=== PATIENT | male | born 1965 | race Caucasian/White ===

== ENCOUNTER 2024-06-05 20:21 | Inpatient (IN) | payer MEDICAID ==
[~2024-06-05] VITALS: Ht 177.8 cm; Wt 115.3 kg
[2024-06-05 20:56] LABS: BASOPHILS % (AUTO) 0.6 % (0-1); EOSINOPHILS # (AUTO) 0.1 X10'3 (0-0.9); EOSINOPHILS % (AUTO) 1.1 % (0-6); HEMATOCRIT 44.5 % (42.0-52.0); HEMOGLOBIN 15.2 g/dl (14.0-17.9); LYMPHOCYTES % (AUTO) 51.1 % (21-51); MEAN CORPUSCULAR HEMOGLOBIN 32.8 PG (27.0-31.0); MEAN CORPUSCULAR HGB CONC 34.2 g/dL (33.0-36.5); MEAN CORPUSCULAR VOLUME 96.1 FL (78-98); MEAN PLATELET VOLUME 7.4 FL (7.4-10.4); MONOCYTES # (AUTO) 0.3 X10'3 (0-0.9); MONOCYTES % (AUTO) 5.3 % (2-12); NEUTROPHILS # (AUTO) 2.5 X10'3 (1.8-7.7); NEUTROPHILS % (AUTO) 41.9 % (42-75); PLATELET COUNT 258 X10'3 (140-440); RED BLOOD COUNT 4.62 X10'6 (4.70-6.10); RED CELL DISTRIBUTION WIDTH 14.4 % (11.5-14.5); WHITE BLOOD COUNT 5.9 X10'3 (4.5-11.0)
[2024-06-05 21:11] LABS: PROTHROMBIN TIME 10.8 SECONDS (9.0-12.0)
[2024-06-05 21:13] LABS: ALANINE AMINOTRANSFERASE 31 U/L (12-78); ALBUMIN 3.3 G/DL (3.4-5.0); ALBUMIN/GLOBULIN RATIO 0.9 (1.1-1.5); ALKALINE PHOSPHATASE 138 IU/L (46-116); ANION GAP 4 (8-16); ASPARTATE AMINO TRANSFERASE 27 U/L (10-37); BILIRUBIN,TOTAL 0.5 MG/DL (0.1-1.0); BLOOD UREA NITROGEN 13 MG/DL (7-18); CALCIUM 8.2 MG/DL (8.5-10.1); CHLORIDE 103 MMOL/L (99-107); CREATININE 1.08 MG/DL (0.60-1.10); GLUCOSE 275 MG/DL (70-104); POTASSIUM 4.3 MMOL/L (3.5-5.1); SODIUM 137 MMOL/L (135-145); TOTAL CARBON DIOXIDE 30.5 MMOL/L (24-32); eCRCL 75 ML/MIN; eGFR 70 ML/MIN
[2024-06-05 21:19] LABS: TOTAL CELLS COUNTED 100
[2024-06-05 21:20] LABS: PLATELET ESTIMATE NORMAL; PRO BRAIN NATRIURETIC PEPTIDE 183 PG/ML (0-125)
[2024-06-05] MEDS ORDERED: magnesium sulf-water 2g/50mL 50 ML IV PRN (21:50)
[2024-06-05] MEDS ORDERED: magnesium sulf-water 4G/100mL 100 ML IV PRN (21:50)
[2024-06-05] MEDS ORDERED: acetaminophen 325mg tablet PO PRN (21:50)
[2024-06-05] MEDS ORDERED: magnesium hydroxide 30ml (MOM) UD suspension PO PRN (21:50)
[2024-06-05] MEDS ORDERED: ondansetron/PF 4mg/2ml inj IV PRN (21:50)
[2024-06-05] MEDS ORDERED: potassium Cl 40MEQ/1/2NS 520ml 520 ML IV PRN (21:50)
[2024-06-05] MEDS ORDERED: potassium Cl 20 mEq SR tablet PO PRN ×2 (21:50)
[2024-06-05 22:08] LABS: MAGNESIUM 2.4 MG/DL (1.5-2.4)
[2024-06-05] MEDS: heparin 10,000 units/1 ML INJ IV ONE (22:08)
[2024-06-05] MEDS: heparin 25,000 UNIT/250ml bag 250 ML IV PRN (22:09)
[2024-06-05] MEDS: MESSAGE TO NURSING IV ONE (22:10)
[2024-06-05] MEDS: HEPARIN DRIP-CARDIAC**PHARMACIST-TO-DOSE IV STA (22:10)
[2024-06-05 22:33] LABS: HEMOGLOBIN A1C > 12.0 % (4.5-6.2)
[2024-06-05] MEDS ORDERED: glucagon, human recombinant 1mg kit SUBCUT PRN (22:35)
[2024-06-05] MEDS ORDERED: nitroGLYCERIN 0.4mg SUBLingual tab SL PRN (22:35)
[2024-06-05] MEDS ORDERED: dextrose 50%-water 50ml dispensing syringe IV PRN ×2 (22:35)
[2024-06-05] MEDS ORDERED: DEXTROSE 15 GM of carb/4 tabs (each vial/BOTTLE has 4 tablets) PO PRN ×2 (22:35)
[2024-06-05] MEDS: atorvastatin 20mg tablet PO SCH (22:54)
[2024-06-05] MEDS: metoprolol tartrate 50mg tablet PO SCH (22:54)
[2024-06-05 23:07] LABS: CHOL/HDL RATIO 4.8 (0.00-4.99); CHOLESTEROL 187 MG/DL (0-200); HDL CHOLESTEROL 39 MG/DL (35-60); TRIGLYCERIDES 292 MG/DL (20-135)
[2024-06-05 23:24] LABS: LDL CHOLESTEROL 105 MG/DL (50-100)
[2024-06-05] MEDS ORDERED: VANCOMYCIN 1,500MG in normal saline IV soln 300 ML IV SCH (23:38)
[2024-06-05] MEDS: clopidogrel 75mg tablet PO ONE (23:45)
[2024-06-06] VITALS (9 sets, daily range): BP systolic 102–130; BP diastolic 61–82; PULSE 64–90; RESP 16–20; TEMP 97.6–98.5; O2SAT 95–98
[2024-06-06] MEDS ORDERED: piperacillin/tazo 3.375gm/50ml 50 ML IV SCH
[2024-06-06] MEDS: VANCOMYCIN 1,500MG in normal saline IV soln 300 ML IV ONE (02:39)
[2024-06-06 03:35] LABS: BASOPHILS % (AUTO) 0.3 % (0-1); EOSINOPHILS # (AUTO) 0.1 X10'3 (0-0.9); EOSINOPHILS % (AUTO) 1.1 % (0-6); HEMATOCRIT 43.2 % (42.0-52.0); HEMOGLOBIN 14.8 g/dl (14.0-17.9); LYMPHOCYTES # (AUTO) 3.1 X10'3 (1.1-4.8); LYMPHOCYTES % (AUTO) 46.3 % (21-51); MEAN CORPUSCULAR HGB CONC 34.2 g/dL (33.0-36.5); MEAN CORPUSCULAR VOLUME 96.5 FL (78-98); MEAN PLATELET VOLUME 7.6 FL (7.4-10.4); MONOCYTES # (AUTO) 0.4 X10'3 (0-0.9); MONOCYTES % (AUTO) 5.9 % (2-12); NEUTROPHILS # (AUTO) 3.1 X10'3 (1.8-7.7); NEUTROPHILS % (AUTO) 46.4 % (42-75); PLATELET COUNT 251 X10'3 (140-440); RED BLOOD COUNT 4.48 X10'6 (4.70-6.10); RED CELL DISTRIBUTION WIDTH 14.4 % (11.5-14.5); WHITE BLOOD COUNT 6.6 X10'3 (4.5-11.0)
[2024-06-06 03:59] LABS: ALANINE AMINOTRANSFERASE 27 U/L (12-78); ALBUMIN/GLOBULIN RATIO 0.8 (1.1-1.5); ALKALINE PHOSPHATASE 127 IU/L (46-116); ANION GAP 5 (8-16); ASPARTATE AMINO TRANSFERASE 26 U/L (10-37); BILIRUBIN,TOTAL 0.5 MG/DL (0.1-1.0); BLOOD UREA NITROGEN 15 MG/DL (7-18); BUN/CREATININE RATIO 14.9 (10.0-20.0); CHLORIDE 103 MMOL/L (99-107); CHOL/HDL RATIO 4.7 (0.00-4.99); CHOLESTEROL 170 MG/DL (0-200); CREATININE 1.01 MG/DL (0.60-1.10); GLUCOSE 293 MG/DL (70-104); HDL CHOLESTEROL 36 MG/DL (35-60); LDL CHOLESTEROL 99 MG/DL (50-100); MAGNESIUM 2.2 MG/DL (1.5-2.4); POTASSIUM 4.2 MMOL/L (3.5-5.1); SODIUM 135 MMOL/L (135-145); TOTAL CARBON DIOXIDE 27.1 MMOL/L (24-32); TOTAL PROTEIN 6.6 G/DL (6.4-8.2); TRIGLYCERIDES 269 MG/DL (20-135); eCRCL 80 ML/MIN; eGFR 75 ML/MIN
[2024-06-06] MEDS: MESSAGE TO NURSING IV ONE ×3 (04:18→17:45)
[2024-06-06] MEDS: K and/or MAG REPLACEMENT MC SCH (08:00)
[2024-06-06] MEDS: INSULIN LISPRO 100 UNIT/ML INSULN.PEN MULTI-DOSE SQ SCH (08:18)
[2024-06-06] MEDS: docusate sod 100mg capsule PO SCH (08:19)
[2024-06-06] MEDS: aspirin 81mg, enteric-coated 1 TAB TABLET.DR PO SCH (08:19)
[2024-06-06] MEDS: heparin 10,000 units/1 ML INJ IV PRN (10:54)
[2024-06-06] MEDS ORDERED: vancomycin/NS 1 GM ADD-VANTAGE 250 ML IV SCH (12:00)
[2024-06-06] MEDS: insulin glargine (Lantus) pen - multi-dose SQ SCH (21:18)
[2024-06-07] VITALS (7 sets, daily range): BP systolic 114–126; BP diastolic 61–78; PULSE 68–80; RESP 14–20; TEMP 97.6–99.2; O2SAT 94–98
[2024-06-07] MEDS: MESSAGE TO NURSING IV ONE ×4 (00:19→19:51)
[2024-06-07 05:47] LABS: BASOPHILS % (AUTO) 0.5 % (0-1); EOSINOPHILS # (AUTO) 0.1 X10'3 (0-0.9); HEMATOCRIT 44.2 % (42.0-52.0); HEMOGLOBIN 15.3 g/dl (14.0-17.9); LYMPHOCYTES # (AUTO) 2.5 X10'3 (1.1-4.8); MEAN CORPUSCULAR HEMOGLOBIN 33.2 PG (27.0-31.0); MEAN CORPUSCULAR HGB CONC 34.5 g/dL (33.0-36.5); MEAN PLATELET VOLUME 7.6 FL (7.4-10.4); MONOCYTES # (AUTO) 0.3 X10'3 (0-0.9); MONOCYTES % (AUTO) 5.5 % (2-12); NEUTROPHILS # (AUTO) 2.7 X10'3 (1.8-7.7); PLATELET COUNT 214 X10'3 (140-440); RED CELL DISTRIBUTION WIDTH 14.2 % (11.5-14.5); WHITE BLOOD COUNT 5.5 X10'3 (4.5-11.0)
[2024-06-07 06:01] LABS: ALANINE AMINOTRANSFERASE 25 U/L (12-78); ALBUMIN 2.9 G/DL (3.4-5.0); ALBUMIN/GLOBULIN RATIO 0.8 (1.1-1.5); ALKALINE PHOSPHATASE 130 IU/L (46-116); ANION GAP 4 (8-16); ASPARTATE AMINO TRANSFERASE 11 U/L (10-37); BILIRUBIN,TOTAL 0.5 MG/DL (0.1-1.0); BLOOD UREA NITROGEN 15 MG/DL (7-18); CALCIUM 7.9 MG/DL (8.5-10.1); CHLORIDE 103 MMOL/L (99-107); CREATININE 0.88 MG/DL (0.60-1.10); GLUCOSE 221 MG/DL (70-104); MAGNESIUM 2.1 MG/DL (1.5-2.4); POTASSIUM 3.9 MMOL/L (3.5-5.1); SODIUM 135 MMOL/L (135-145); TOTAL PROTEIN 6.5 G/DL (6.4-8.2); eCRCL 92 ML/MIN; eGFR 88 ML/MIN
[2024-06-08] VITALS (17 sets, daily range): BP systolic 95–134; BP diastolic 55–74; PULSE 54–92; RESP 14–18; TEMP 96.8–98.3; O2SAT 92–100
[2024-06-08 01:11] LABS: BASOPHILS % (AUTO) 0.7 % (0-1); EOSINOPHILS # (AUTO) 0.1 X10'3 (0-0.9); EOSINOPHILS % (AUTO) 1.2 % (0-6); HEMATOCRIT 44.9 % (42.0-52.0); HEMOGLOBIN 15.6 g/dl (14.0-17.9); LYMPHOCYTES % (AUTO) 45.2 % (21-51); MEAN CORPUSCULAR HGB CONC 34.7 g/dL (33.0-36.5); MEAN CORPUSCULAR VOLUME 95.1 FL (78-98); MEAN PLATELET VOLUME 7.6 FL (7.4-10.4); MONOCYTES # (AUTO) 0.3 X10'3 (0-0.9); MONOCYTES % (AUTO) 4.7 % (2-12); NEUTROPHILS # (AUTO) 3.2 X10'3 (1.8-7.7); NEUTROPHILS % (AUTO) 48.2 % (42-75); PLATELET COUNT 204 X10'3 (140-440); RED BLOOD COUNT 4.72 X10'6 (4.70-6.10); RED CELL DISTRIBUTION WIDTH 14.4 % (11.5-14.5); WHITE BLOOD COUNT 6.6 X10'3 (4.5-11.0)
[2024-06-08 01:22] LABS: ALANINE AMINOTRANSFERASE 28 U/L (12-78); ALBUMIN 2.9 G/DL (3.4-5.0); ALBUMIN/GLOBULIN RATIO 0.8 (1.1-1.5); ALKALINE PHOSPHATASE 129 IU/L (46-116); ANION GAP 9 (8-16); ASPARTATE AMINO TRANSFERASE 13 U/L (10-37); BILIRUBIN,TOTAL 0.5 MG/DL (0.1-1.0); BLOOD UREA NITROGEN 15 MG/DL (7-18); CALCIUM 8.3 MG/DL (8.5-10.1); CHLORIDE 102 MMOL/L (99-107); CREATININE 0.79 MG/DL (0.60-1.10); GLUCOSE 188 MG/DL (70-104); POTASSIUM 3.8 MMOL/L (3.5-5.1); SODIUM 137 MMOL/L (135-145); TOTAL CARBON DIOXIDE 26.3 MMOL/L (24-32); TOTAL PROTEIN 6.5 G/DL (6.4-8.2); eCRCL 103 ML/MIN; eGFR > 90 ML/MIN
[2024-06-08] MEDS: MESSAGE TO NURSING IV ONE (01:58)
[2024-06-08] MEDS ORDERED: heparin 25,000 UNIT/250ml bag 250 ML IV PRN (09:08)
[2024-06-08] MEDS ORDERED: verapamil 2.5 mg/ml inj IV ONE (13:52)
[2024-06-08] MEDS ORDERED: iohexol 350MG/ML 100ml bottle IV ONE (13:52)
[2024-06-08] MEDS ORDERED: heparin 1,000unit/ml 10ml vial 0 ML ONE (13:52)
[2024-06-08] MEDS ORDERED: midazolam 1 mg/ML 2ml injection ONE (13:52)
[2024-06-08] MEDS ORDERED: fentaNYL/PF 50MCG/1 ML 2ML syringe ONE (13:52)
[2024-06-08] MEDS ORDERED: LIDOcaine 1% (10mg/ml) 2ml vial ONE (13:52)
[2024-06-08] MEDS ORDERED: LIDOcaine 1% 30ml preserv. free vial ONE (14:14)
[2024-06-08] MEDS ORDERED: iohexol 350 MG/ML 50ML vial IV ONE (14:44)
[2024-06-08] MEDS: JUVEN Smoothie Arginine/Glut./Ca2+Bmb (Juven 19.3pkt) 240ml cup PO SCH (17:30)
[2024-06-08] MEDS ORDERED: clopidogrel 75mg tablet PO SCH ×2 (20:00→21:04)
[2024-06-08] MEDS: clopidogrel 75mg tablet PO ONE (21:26)
[2024-06-09 02:00] VITALS: BP 142/84; PULSE 73; RESP 18; TEMP 97.5; O2SAT 97
[2024-06-09 06:00] VITALS: BP 154/96; PULSE 84; RESP 12; TEMP 98.1; O2SAT 100
[2024-06-09 07:21] LABS: BASOPHILS % (AUTO) 0.4 % (0-1); EOSINOPHILS # (AUTO) 0.1 X10'3 (0-0.9); HEMATOCRIT 47.4 % (42.0-52.0); HEMOGLOBIN 16.4 g/dl (14.0-17.9); LYMPHOCYTES # (AUTO) 2.2 X10'3 (1.1-4.8); LYMPHOCYTES % (AUTO) 31.8 % (21-51); MEAN CORPUSCULAR HEMOGLOBIN 33.2 PG (27.0-31.0); MEAN CORPUSCULAR HGB CONC 34.7 g/dL (33.0-36.5); MEAN CORPUSCULAR VOLUME 95.7 FL (78-98); MEAN PLATELET VOLUME 7.7 FL (7.4-10.4); MONOCYTES # (AUTO) 0.4 X10'3 (0-0.9); MONOCYTES % (AUTO) 5.4 % (2-12); NEUTROPHILS # (AUTO) 4.2 X10'3 (1.8-7.7); NEUTROPHILS % (AUTO) 61.4 % (42-75); PLATELET COUNT 198 X10'3 (140-440); RED BLOOD COUNT 4.96 X10'6 (4.70-6.10); RED CELL DISTRIBUTION WIDTH 14.3 % (11.5-14.5); WHITE BLOOD COUNT 6.9 X10'3 (4.5-11.0)
[2024-06-09 07:25] LABS: ALANINE AMINOTRANSFERASE 51 U/L (12-78); ALBUMIN/GLOBULIN RATIO 0.8 (1.1-1.5); ALKALINE PHOSPHATASE 136 IU/L (46-116); ANION GAP 8 (8-16); ASPARTATE AMINO TRANSFERASE 33 U/L (10-37); BILIRUBIN,TOTAL 0.7 MG/DL (0.1-1.0); BLOOD UREA NITROGEN 15 MG/DL (7-18); BUN/CREATININE RATIO 19.5 (10.0-20.0); CALCIUM 8.7 MG/DL (8.5-10.1); CHLORIDE 102 MMOL/L (99-107); CREATININE 0.77 MG/DL (0.60-1.10); GLUCOSE 177 MG/DL (70-104); MAGNESIUM 2.1 MG/DL (1.5-2.4); POTASSIUM 4.2 MMOL/L (3.5-5.1); SODIUM 136 MMOL/L (135-145); TOTAL CARBON DIOXIDE 25.9 MMOL/L (24-32); TOTAL PROTEIN 6.8 G/DL (6.4-8.2); eCRCL 105 ML/MIN; eGFR > 90 ML/MIN
[2024-06-09 08:04] VITALS: BP_SYST 154; PULSE 84
[2024-06-09] MEDS ORDERED: CLOP75TA34 PO ×2 (10:24→11:18)
[2024-06-09] MEDS ORDERED: ASPI-1071 PO (10:24)
[2024-06-09] MEDS ORDERED: NITR0.4T51 SL (10:24)
[2024-06-09] MEDS ORDERED: ATOR20TA66 PO ×3 (10:24→11:20)
[2024-06-09] MEDS ORDERED: METO50TA16 PO ×2 (10:24→11:20)
[2024-06-09] MEDS ORDERED: ASPI-1265 PO (11:20)
[2024-06-09] MEDS ORDERED: NITR0.4T48 SL (11:23)
[2024-06-09] MEDS ORDERED: INSU100V9 SQ (16:21)
[2024-06-09] MEDS ORDERED: METF-1203 PO (16:31)
[2024-06-09] MEDS ORDERED: INSU200I SUBCUT (16:31)
== END 2024-06-09 11:05 | disposition home or self-care (01) | DRG 190 ==
LOC: ER 20:24 → ED HOLD 22:24 → PCU 3S 06-06 00:10
PROVIDERS: ADMIT Internal Medicine Critical Care Medicine; ATTEND Internal Medicine
PROC: 4A023N7 Measurement of Cardiac Sampling and Pressure, Left Heart, Percutaneous Approach (ICD-10-PCS; principal; 2024-06-08)
PROC: B2111ZZ Fluoroscopy of Multiple Coronary Arteries using Low Osmolar Contrast (ICD-10-PCS; 2024-06-08)
PROC: B2131ZZ Fluoroscopy of Multiple Coronary Artery Bypass Grafts using Low Osmolar Contrast (ICD-10-PCS; 2024-06-08)
PROC: B4101ZZ Fluoroscopy of Abdominal Aorta using Low Osmolar Contrast (ICD-10-PCS; 2024-06-08)
PROC: B41F1ZZ Fluoroscopy of Right Lower Extremity Arteries using Low Osmolar Contrast (ICD-10-PCS; 2024-06-08)
DX: I21.4 Non-ST elevation (NSTEMI) myocardial infarction (principal); E11.65 Type 2 diabetes mellitus with hyperglycemia; E11.69 Type 2 diabetes mellitus with other specified complication; L03.115 Cellulitis of right lower limb; M86.8X7 Other osteomyelitis, ankle and foot; Z95.1 Presence of aortocoronary bypass graft; F17.210 Nicotine dependence, cigarettes, uncomplicated; I10 Essential (primary) hypertension; I25.10 Atherosclerotic heart disease of native coronary artery without angina pectoris; E78.5 Hyperlipidemia, unspecified; Z79.899 Other long term (current) drug therapy; Z82.49 Family history of ischemic heart disease and other diseases of the circulatory system
CPT/HCPCS: 36415; 71045; 73590; 80053; 80061; 82948; 83036; 83605; 83735; 83880; 84484; 85007; 85025; 85610; 85730; 87040; 87081; 93005; 93306; 93459; 93567; 96374; 99152; 99153; 99291; A6223; A6253; A6258; A6446; A6449; C1760; C1894; G0378; J1644; J1815; J2003; J2250; J3010; J3370; J3490; J7030; J7040; Q9967